=== PATIENT | male | born 1985 | race Caucasian/White ===

== ENCOUNTER 2020-05-03 16:37 | Emergency (ER) | payer MEDICAID, OTHER ==
[~2020-05-03] VITALS: Ht 182.9 cm; Wt 81.6 kg
[2020-05-03 19:11] LABS: Basophils # (auto) 0 10 ^3/uL (0-0.2); Eosinophils # (auto) 0.1 10 ^3/uL (0-0.8); Hemoglobin 12.6 g/dL (13.5-17.5); Lymphocytes # (auto) 1.8 10 ^3/uL (0.4-5.4); Monocytes # (auto) 0.5 10 ^3/uL (0-1.3); Neutrophils # (auto) 3.2 10 ^3/uL (1.6-8.6); Red Cell Distribution Width 15.3 % (11.8-14.3); White Blood Cell 5.6 10^3/uL (4.4-10.8)
[2020-05-03 19:14] LABS: Basophils % (auto) 0.9 % (0.0-2.0); Eosinophils % (auto) 2.2 % (0.0-7.0); Hematocrit 38.2 % (41.0-53.0); Lymphocytes % (auto) 32.3 % (10.0-50.0); Mean Corpuscular Hemoglobin 21.6 pg (28.0-32.0); Mean Corpuscular Volume 65.5 fL (80.0-100.0); Monocytes % (auto) 8.2 % (0.0-12.0); Neutrophils % (auto) 56.4 % (37.0-80.0); Platelet Count (auto) 168 10^3/uL (140-450); Red Blood Cells 5.83 10^6/uL (4.5-5.90)
[2020-05-03 19:25] LABS: Chloride 105 mmol/L (98-107); Potassium 3.8 mmol/L (3.5-5.1); Salicylate 3.8 mg/dL (2.8-20.0); Sodium 139 mmol/L (136-145)
[2020-05-03 19:28] LABS: Acetaminophen < 2.0 ug/mL (10-30)
[2020-05-03 19:31] LABS: Alanine Aminotransferase 32 U/L (16-61); Albumin 3.7 g/dL (3.4-5.0); Alkaline Phosphatase 56 U/L (45-117); Anion Gap 5 (5-15); Aspartate Aminotransferase 17 U/L (15-37); BUN/Creatinine Ratio 16.7; Bilirubin, Total 0.4 mg/dL (0.2-1.0); Blood Alcohol < 3.0 mg/dL (0-5); Blood Urea Nitrogen 8 mg/dL (7-18); Calcium 8.8 mg/dL (8.5-10.1); Carbon Dioxide 29 mmol/L (21-32); GFR African American 252 mL/min; GFR Non-African American 208 mL/min; Glucose 75 mg/dL (74-106); Total Protein 7.2 g/dL (6.4-8.2)
[2020-05-04 19:05] LABS: Amphetamine Screen, Urine NEGATIVE (NEGATIVE); Barbiturate Scree,Urine NEGATIVE (NEGATIVE); Benzodiazephine Screen, Urine POSITIVE (NEGATIVE); Cannabinoid Screen, Urine NEGATIVE (NEGATIVE); Cocaine Screen, Urine NEGATIVE (NEGATIVE); Opiate Scree,Urine NEGATIVE (NEGATIVE); Phencyclidine Screen, Urine NEGATIVE (NEGATIVE)
[2020-05-05] MEDS ORDERED: DIVA1TAB38 PO (12:54)
[2020-05-05] MEDS ORDERED: QUET100T46 PO (12:54)
[2020-05-05] MEDS ORDERED: RISP2TAB62 PO (12:54)
[2020-05-05] MEDS ORDERED: QUEtiapine FUMARATE 100 MG TAB PO SCH ×2 (13:00→13:05)
[2020-05-05] MEDS ORDERED: risperiDONE 1 MG TAB PO ONE (13:30)
[2020-05-05] MEDS ORDERED: LORazepam 2MG/ML-1ML VIAL IV ONE ×2 (21:30→21:45)
[2020-05-05] MEDS: risperiDONE 1 MG TAB PO SCH (22:39)
[2020-05-06] MEDS: risperiDONE 1 MG TAB PO SCH (10:12)
[2020-05-06] MEDS ORDERED: risperiDONE 1 MG TAB PO SCH (22:00)
[2020-05-06] MEDS ORDERED: QUEtiapine FUMARATE 100 MG TAB PO SCH (22:00)
[2020-05-06] MEDS ORDERED: risperiDONE 1 MG TAB ONE (23:50)
[2020-05-06] MEDS ORDERED: QUEtiapine FUMARATE 100 MG TAB ONE (23:51)
[2020-05-07 08:02] VITALS: BP 111/66
== END 2020-05-07 10:28 | disposition home or self-care (01) ==
LOC: EDBD 16:37 → ER 16:37
DX: T43.212A Poisoning by selective serotonin and norepinephrine reuptake inhibitors, intentional self-harm, initial encounter (principal); R45.851 Suicidal ideations; F84.0 Autistic disorder; Z20.822 Contact with and (suspected) exposure to COVID-19; Y92.9 Unspecified place or not applicable
CPT/HCPCS: 36415; 80053; 80307; 80320; 80329; 85025; 87426; 93005; 99285; C9803; U0003